=== PATIENT | male | born 1990 | race Caucasian/White ===

== ENCOUNTER 2017-01-15 11:16 | Emergency (ER) | payer BC, OTHER ==
[2017-01-15 11:43] VITALS: BP 140/65
--- NOTE | 2017-01-15 12:09 | UC ---
Throat Pain/Nasal [place] HPI - HPI Summary HPI Summary: feels ok but mom looked in his mouth and saw swollen tonsils and exudates--- here to get them checked for strep - History of Current Complaint Chief Complaint: UCRespiratory Stated Complaint: THROAT/TONSIL COMPLAINT Time Seen by Provider: 01/15/17 12:04 Hx Obtained From: Patient Onset/Duration: Sudden Onset, Still Present Severity: Mild Pain Intensity: 0 Pain Scale Used: 0-10 Numeric Cough: None Associated Signs & Symptoms: Positive: Negative - Allergies/Home Medications Allergies/Adverse Reactions: Allergies Allergy/AdvReac Type Severity Reaction Status Date / Time No Known Allergies Allergy Verified 01/15/17 11:43 Home Medications: Home Medications Naproxen Sodium [Naproxen Sodium 220 mg] 220 mg PO PRN 01/15/17 [History] PMH/Surg Hx/FS Hx/Imm Hx Previously Healthy: Yes - frequent strep as a child, tonsil stones - Surgical History Surgical History: None - Family History Known Family History: Positive: None Family History: no cardio vascular issues reported in family lineage - Social History Occupation: Employed Full-time Lives: With Family Alcohol Use: Weekly Substance Use Type: Marijuana Substance Use Comment - Amount & Last Used: daily usage Smoking Status (MU): Never Smoked Tobacco Review of Systems Constitutional: Negative Skin: Negative Eyes: Negative ENT: Negative Respiratory: Negative Cardiovascular: Negative Gastrointestinal: Negative Genitourinary: Negative Motor: Negative Neurovascular: Negative Musculoskeletal: Negative Neurological: Negative Psychological: Negative All Other Systems Reviewed And Are Negative: Yes Physical Exam Triage Information Reviewed: Yes Appearance: Well-Appearing, No Pain Distress, Well-Nourished Vital Signs: Initial Vital Signs Temp 98.5 F 01/15/17 11:35 Pulse 65 01/15/17 11:35 Resp 14 01/15/17 11:35 BP 140/65 01/15/17 11:35 Pulse Ox 100 01/15/17 11:35 Vital Signs Reviewed: Yes Eye Exam: Normal Eyes: Positive: Conjunctiva Clear ENT Exam: Normal ENT: Positive: Normal ENT inspection, Hearing grossly normal, Pharynx normal, TMs normal, Tonsillar swelling, Tonsillar exudate. Negative: Nasal congestion, Nasal drainage, Trismus, Muffled/hoarse voice Dental Exam: Normal Neck exam: Normal Neck: Positive: Supple, Nontender, No Lymphadenopathy Respiratory Exam: Normal Respiratory: Positive: Chest non-tender, Lungs clear, Normal breath sounds, No respiratory distress, No accessory muscle use Cardiovascular Exam: Normal Cardiovascular: Positive: RRR, No Murmur, Pulses Normal, Brisk Capillary Refill Musculoskeletal Exam: Normal Musculoskeletal: Positive: Strength Intact Neurological Exam: Normal Neurological: Positive: Alert, Muscle Tone Normal Psychological Exam: Normal Skin Exam: Normal Diagnostics - Laboratory Diagnostic Studies Completed/Ordered: RST (-) Throat Pain/Nasal Course/Dx - Course Assessment/Plan: salt water gargle, rest, information regarding hypertension and DASH diet - Differential Dx/Diagnosis Differential Diagnosis/HQI/PQRI: Laryngitis, Peritonsillar Abscess, Pharyngitis , Sinusitis, Tonsillitis, URI Provider Diagnoses: High Blood Pressure no dx of HTN, Tonsillitis Discharge - Discharge Plan Condition: Stable Disposition: HOME Patient Education Materials: Tonsillitis (ED), DASH Eating Plan (ED), Hypertension (ED) Referrals: Jacob Reagan DO [Primary Care Provider] - 4 Days
== END 2017-01-15 12:50 | disposition home or self-care (01) ==
LOC: UCCORT 11:16
DX: J03.90 Acute tonsillitis, unspecified (principal); R03.0 Elevated blood-pressure reading, without diagnosis of hypertension; F12.10 Cannabis abuse, uncomplicated
CPT/HCPCS: 87651; 99201; G0463